=== PATIENT | female | born 2000 | race African-American/Black ===

== ENCOUNTER 2020-10-04 01:38 | Emergency (ER) | payer SELFPAY ==
--- NOTE | ~2020-10-04 | XR_ITS ---
EXAMINATION: XR shoulder RT min 2V INDICATION: Right shoulder pain TECHNIQUE: Four views of the right shoulder are submitted. COMPARISON: None FINDINGS: Normal alignment. No fracture. Glenohumeral and acromioclavicular joint spaces are normal. Soft tissues are unremarkable. IMPRESSION: 1. No acute osseous abnormality. Reviewed, dictated and finalized at location A.
[2020-10-04 01:42] VITALS: BP 141/84; PULSE 89; RESP 18; TEMP 35.7; O2SAT 100
--- NOTE | 2020-10-04 01:53 | ED.UPPEXIN ---
HPI - Extremity Injury (Upper) General Chief Complaint: Extremity Injury, Upper Stated Complaint: dislocated rt shoulder - bowling Time Seen by Provider: 10/04/20 01:49 History of Present Illness HPI narrative: richard 19 yo female presents to the ED for a shoulder dislocation . She reports that she went bowling with family earlier in the evening and did not notice anything out of the ordinary. When she got home she was having mild pain in the right shoulder, but was able to tolerate it. She awoke just prior to coming in and says that she has severe pain all around the shoulder radiating into the neck. She reports not being able to move the shoulder at all, so she believes that it popped out. No previous shoulder injuries. She did not take anything for her pain. Related Data Allergies Allergy/AdvReac Type Severity Reaction Status Date / Time penicillin V Allergy Difficulty Verified 10/04/20 01:44 Breathing Review of Systems Review of Systems: All systems reviewed & are unremarkable except as noted in HPI and below Constitutional: Constitutional: Reports no additional constitutional complaints Cardiovascular: Cardiovascular: Denies chest pain Respiratory: Respiratory: Denies dyspnea Gastrointestinal: Gastrointestinal: Reports no additional gastrointestinal complaints Musculoskeletal: Musculoskeletal: Denies back pain Neurologic: Denies dizziness PMFSH Social History Social History Gender identity (if verbalized by the patient): Female Sexual Orientation (if Verbalized by the Patient): Straight or Heterosexual Exam Const: General: healthy appearing, no acute distress and alert Orientation/consciousness: patient oriented x3 HENMT: Head: normal to inspection Resp: Effort & Inspection: normal respiratory effort Auscultation: clear to auscultation bilaterally Cardio: Rate: regular rate Rhythm: regular rhythm Other: 2 + right radial. brisk capillary refill Skin: General skin exam: normal color Rashes: no rashes Wounds: no wounds Neuro: General: patient oriented x3, moves all extremities, no focal motor deficits and CN's II-XI intact bilaterally Speech: normal speech Extrem: Other: Diffuse tenderness around shoulder on the left. Worst over lateral humeral head. No deformity. Refusing to move the shoulder or allow any further joint exam Full ROM in elbow and hand without difficulty. Sensation intact in axillary distribution Course Vital Signs Vital signs: Vital Signs Temperature 35.7 C L 10/04/20 01:42 Pulse Rate 89 04/19/21 01:42 Respiratory Rate 18 10/04/20 01:42 Blood Pressure 141/84 H 10/04/20 01:42 Pulse Oximetry 100 10/04/20 01:42 Temperature 35.7 C L 10/04/20 01:42 Pulse Rate 89 10/04/20 01:42 Respiratory Rate 18 10/04/20 01:42 Blood Pressure 141/84 H 10/04/20 01:42 Pulse Oximetry 100 10/04/20 01:42 MDM - Extremity Injury (Upper) MDM Narrative Medical decision making narrative: x-ray negative. history fits with strain or overuse type injury. Imaging Data Radiologist's impression: ITS Impressions Shoulder X-Ray 10/04/20 08:19 IMPRESSION: 1. No acute osseous abnormality. Discharge Plan Discharge Clinical Impression: Rotator cuff (capsule) sprain Qualifiers: Encounter type: initial encounter Laterality: right Qualified Code(s): S43.421A - Sprain of right rotator cuff capsule, initial encounter Patient Disposition: Home, Self-Care Condition: Stable Instructions: Rotator Cuff Injury (ED), Rotator Cuff Injury Exercises (DC) Prescriptions: New ibuprofen 800 mg tablet 800 mg PO Q8H Qty: 90 RF: 0 cyclobenzaprine 10 mg tablet 10 mg PO TID PRN (Reason: muscle spasm) Qty: 20 RF: 0 Follow-up/Referrals: PHYSICIAN NOT ON STAFF,NONSTAFF [Non-Staff] - Markie Hollins MD [Physician] -
--- NOTE | 2020-10-04 01:59 | PC.NURSE ---
Patient taken to xray.
[2020-10-04] MEDS: DEXAMETHASONE SOD PHOS INJ 4 MG/ML VIAL 10 MG IM (02:07)
[2020-10-04] MEDS: KETOROLAC (*BKC) 60 MG/2 ML VIAL IM (02:07)
== END 2020-10-04 02:32 | disposition home or self-care (01) ==
LOC: ANHED 02:22
PROVIDERS: Emergency Provider Emergency Medicine
DX: S43.421A Sprain of right rotator cuff capsule, initial encounter (principal); Y93.54 Activity, bowling; X50.9XXA Other and unspecified overexertion or strenuous movements or postures, initial encounter
CPT/HCPCS: 73030; 96372; 99284; A4565; J1100; J1885

== ENCOUNTER 2020-12-05 17:00 | Emergency (ER) | payer SELFPAY ==
--- NOTE | ~2020-12-05 | XR_ITS ---
XR finger 1st RT min 2V DATE: 12/05/2020 17:25 INDICATION: Injury, generalized right first digit pain TECHNIQUE: 4 views COMPARISON: None FINDINGS: No fracture or dislocation, periosteal reaction or bone destruction. IMPRESSION: Negative Reviewed, dictated and finalized at location A. IMPRESSION: Negative
[2020-12-05 17:09] VITALS: BP 143/76; PULSE 78; RESP 17; TEMP 36.6; O2SAT 99
--- NOTE | 2020-12-05 17:53 | ED.UPPEXIN ---
HPI - Extremity Injury (Upper) General Chief Complaint: Extremity Injury, Upper Stated Complaint: right thumb pain Time Seen by Provider: 12/05/20 17:20 Source: patient Mode of arrival: ambulatory Limitations: no limitations History of Present Illness HPI narrative: This is a 20 year old female that presents to the ER for right thumb pain after an injury today. Reports she was playing around with a friend and accidentally hurt the thumb. Reports decreased ROM due to pain. Denies numbness. Related Data Allergies Allergy/AdvReac Type Severity Reaction Status Date / Time penicillin V Allergy Difficulty Verified 12/05/20 17:23 Breathing Review of Systems Review of Systems: Narrative: CONSTITUTIONAL: Denies fever MUSCULOSKELETAL: Reports joint pain, and myalgia. NEUROLOGIC: Denies numbness All systems reviewed & are unremarkable except as noted in HPI and below PMFSH Past Medical History Medical History (Updated 12/05/20 @ 18:55 by Moni Casey PA-C) No active medical problems Surgical History Surgical History (Updated 12/05/20 @ 17:59 by Moni Casey PA-C) History of tonsillectomy Social History Social History Gender identity (if verbalized by the patient): Female Exam Narrative: Exam Narrative: GENERAL: Well-appearing, well-nourished, and in no acute distress. HEAD: Normocephalic, atraumatic. EYES: EOMI. EXTREMITIES: Decreased active ROM in the right first finger due to pain. No edema or obvious deformity. Normal radial pulses. Normal sensation SKIN: Warm, dry, no rash. NEURO: No focal deficits. Alert and oriented x3. PSYCH: Normal mood and affect Course Vital Signs Vital signs: Vital Signs Temperature 97.8 F 12/05/20 17:09 Pulse Rate 78 12/05/20 17:09 Respiratory Rate 17 12/05/20 17:09 Blood Pressure 143/76 H 12/05/20 17:09 Pulse Oximetry 99 12/05/20 17:09 Temperature 97.8 F 12/05/20 17:09 Pulse Rate 78 12/05/20 17:09 Respiratory Rate 17 12/05/20 17:09 Blood Pressure 143/76 H 12/05/20 17:09 Pulse Oximetry 99 12/05/20 17:09 Procedures Orthopedic Splinting/Casting Injury #1: Splinting/Casting Date: 12/05/20 Splinting/Casting Time: 18:56 Side: right Upper Extremity Injury Location: finger Upper Extremity Immobilizer: finger (other) Splint: prefabricated Pre-Formed: metal foam finger splint Pre-Procedure Neuro Vascular Exam: normal Post-Procedure Neuro Vascular Exam: normal MDM - Extremity Injury (Upper) MDM Narrative Medical decision making narrative: Patient presents to the ER for right 1st finger injury sustained just prior to arrival. Right first finger x-ray is without acute abnormalities. Patient placed in finger splint for comfort. Is to follow up with primary care doctor. Was given warnings to return to the ER Imaging Data Radiologist's impression: ITS Impressions Finger X-Ray 12/05/20 17:56 IMPRESSION: Negative Critical Care Time Critical Care Time Critical Care Time: No Discharge Plan Discharge Clinical Impression: Sprain of hand, thumb, right Qualifiers: Encounter type: initial encounter Sprain of finger site: metacarpophalangeal joint Qualified Code(s): S63.641A - Sprain of metacarpophalangeal joint of right thumb, initial encounter Patient Disposition: Home, Self-Care Condition: Stable Instructions: Finger Sprain (ED) Additional Instructions: Return to the ER if you experience fever, redness and swelling of your hand, numbness or any other symptoms that are concerning to you Rest. Ice to the area. Tylenol or Ibuprofen as needed for pain Follow up with primary care doctor for further management Prescriptions: No Action ibuprofen 800 mg tablet 800 mg PO Q8H Qty: 90 RF: 0 cyclobenzaprine 10 mg tablet 10 mg PO TID PRN (Reason: muscle spasm) Qty: 20 RF: 0 Follow-up/Refer
[2020-12-05] MEDS: HYDROcodone/acetaminophen (*CRX) 5-325 MG TABLET 1 TAB PO (17:58)
[2020-12-05 19:14] VITALS: BP 140/72; PULSE 100; RESP 18; O2SAT 72
== END 2020-12-05 19:10 | disposition home or self-care (01) ==
PROVIDERS: Emergency Provider Emergency Medicine
DX: S63.641A Sprain of metacarpophalangeal joint of right thumb, initial encounter (principal); X58.XXXA Exposure to other specified factors, initial encounter
CPT/HCPCS: 29130; 73140; 99283; A9270

== ENCOUNTER 2022-09-21 04:30 | Emergency (ER) | payer BC, SELFPAY ==
[2022-09-21 04:33] VITALS: BP 147/61; PULSE 88; RESP 20; TEMP 36.8; O2SAT 99
[2022-09-21 06:56] VITALS: BP 140/86; PULSE 95; RESP 18; TEMP 36.9; O2SAT 100
[2022-09-21 07:00] VITALS: BP 140/86; PULSE 80; RESP 18; TEMP 36.9; O2SAT 100
[2022-09-21 07:38] LABS: Basophils Percent Auto 0.4 % (0.2-1.2); Eosinophils Absolute Auto 0.1 K/mm3 (0-0.3); Eosinophils Percent Auto 1.3 % (0-4.4); Hematocrit 33.1 % (37.0-47.0); Immature Granulocyte Absolute 0.04 K/mm3 (0.00-0.031); Immature Granulocyte Percent A 0.6 % (0-0.5); Lymphocytes Absolute Auto 1.76 K/mm3 (0.9-3.2); Lymphocytes Percent Auto 24.6 % (18.3-44.2); Mean Corpuscular HGB Conc 33.2 g/dl (32-36); Mean Corpuscular Hemoglobin 26.2 pg (26-34); Mean Corpuscular Volume 78.8 fl (80-100); Monocytes Absolute Auto 0.8 K/mm3 (0.1-0.6); Monocytes Percent Auto 10.9 % (2.6-8.5); Neutrophils Absolute Auto 4.5 K/mm3 (1.3-6.7); Neutrophils Percent Auto 62.2 % (45.5-73.1); Platelet Count Result 210 k/mm3 (150-375); Red Cell Distribution Width 15.3 % (11.5-14.5); White Blood Count 7.2 K/mm3 (4.5-10.0)
[2022-09-21 07:52] LABS: Alanine Aminotransferase 20 U/L (6-35); Alkaline Phosphatase 103 U/L (38-126); Anion Gap 8 mmol/L (8-16); Aspartate Amino Transferase 26 U/L (14-36); Bilirubin,Total 0.6 mg/dL (0.2-1.3); Carbon Dioxide 24 mmol/L (22-30); Chloride 104 mmol/L (98-107); Estimated CRCL calculation 281 ml/min; Estimated Glomerular Filt Rate > 60; Glucose 87 mg/dL (65-110); Potassium 3.4 mmol/L (3.4-5.0); Sodium 136 mmol/L (137-145)
[2022-09-21 07:53] LABS: Blood Urea Nitrogen < 2 mg/dL (7-17)
--- NOTE | 2022-09-21 07:57 | ED.GENADULT ---
HPI - General Adult General Chief complaint: Upper Respiratory Infection Stated complaint: covid positive, Time Seen by Provider: 09/21/22 06:55 History of Present Illness HPI narrative: 21-year-old female that is approximately 18 weeks presented the emergency department for evaluation of increased shortness of breath. Patient states that she was having similar symptoms yesterday presented to an urgent care and was diagnosed with COVID and a urinary tract infection. Patient states that her shortness of breath is due to worsening asthma and due to some nasal congestion. Patient denies any current chest pain. While patient was prescribed an antibiotic for UTI she has not yet started this yet. Patient presented again to our ED for complaint of shortness of breath. Patient states that she asked her physician yesterday for albuterol inhaler but he felt this was not necessary. Related Data Allergies Allergy/AdvReac Type Severity Reaction Status Date / Time penicillin V Allergy Difficulty Verified 09/21/22 07:46 Breathing Review of Systems Review of Systems: All systems reviewed & are unremarkable except as noted in HPI and below PMFSH Past Medical History Medical History (Updated 09/21/22 @ 18:43 by Isaias Smith MD) No active medical problems Surgical History Surgical History (Updated 12/05/20 @ 17:59 by Moni Casey PA-C) History of tonsillectomy Social History Social History Gender identity (if verbalized by the patient): Female Sexual Orientation (if Verbalized by the Patient): Straight or Heterosexual Exam Narrative: APPEARANCE: Well appearing, no pain, no distress, well-nourished. HEAD: normocephalic, atraumatic. EYES: PERRLA/EOMI, conjunctivae clear. NOSE: Normal no drainage NECK: Supple. No adenopathy, no masses. RESPIRATORY: Airway patent, respirations nonlabored. Clear to auscultation bilaterally, no rales, rhonchi, wheezing. CARDIOVASCULAR: Regular rate and rhythm without murmurs rubs or gallops. ABDOMINAL: Soft, nontender, nondistended, normal bowel sounds MUSCULOSKELETAL: Moves all extremities. Strength/ROM intact, No edema, No calf tenderness. NEURO: Alert. Cranial nerves II through XII intact. SKIN: Warm, dry. Normal Color Course Course Emergency Course: 21-year-old female with COVID and persistent shortness of breath. Patient's lung exam was clear but patient will be treated with an albuterol inhaler for symptom control. Patient was updated on the treatment plan. All question concerns were addressed. Patient denies any uterine contractions. Patient is not tachycardic nor hypoxic. Lungs are clear to auscultation Patient does feel improved with treatment. Patient was updated the results of the work-up. Patient's symptoms are consistent with her current COVID infection. Low concern for pulmonary embolism at this time. Patient's UA was significant for urinary tract infection but patient was started on antibiotics yesterday. Urine culture was repeated. All question concerns were addressed and patient was comfortable with the plan for discharge and close follow-up. Vital Signs Vital signs: Vital Signs Temperature 98.2 F 09/21/22 04:33 Pulse Rate 88 09/21/22 04:33 Respiratory Rate 20 09/21/22 04:33 Blood Pressure 147/61 H 09/21/22 04:33 Pulse Oximetry 99 09/21/22 04:33 Oxygen Delivery Room Air 09/21/22 04:33 Temperature 98.4 F 09/21/22 07:00 Pulse Rate 89 09/21/22 10:05 Respiratory Rate 18 09/21/22 10:05 Blood Pressure 122/61 09/21/22 10:05 Pulse Oximetry 100 09/21/22 10:05 Oxygen Delivery Room Air 09/21/22 07:00 Medical Decision Making Vital Signs Vital Signs: Vital Signs Temperature 98.2 F 09/21/22 04:33 Pulse Rate 88 09/21/22 04:33 Respiratory Rate 20 09/21/22 04:33 Blood Pressure 147/61 H 09/21/22 04:33 Pulse Oximetry 99 09/21/22 04:33 Oxy
[2022-09-21 08:01] LABS: Appearance Urine Cloudy (Clear); Bacteria Urine 1+ /hpf; Bilirubin Urine Negative (Negative); Blood Urine 1+ (Negative); Color Urine Dark Yellow (Yellow); Glucose Urine UA Negative (Negative); Ketones Urine Trace mg/dL (Negative); Leukocyte Esterase Ur 2+ LEU/UL (Negative); Nitrate Urine Negative (Negative); Non Pathogenic Casts 0-2; Protein Urine Negative (Negative); Specific Grav Ur 1.018 (1.001-1.035); Squamous Epithelial Cell Urine Moderate /hpf (Few)
[2022-09-21 08:09] LABS: Add Urine Microscopic? YES
[2022-09-21] MEDS: SODIUM CHLORIDE 0.9% IV 1,000 ML 999 ML IV CONT (08:13)
[2022-09-21 08:45] VITALS: PULSE 75; RESP 22
[2022-09-21] MEDS: ALBUTEROL SULFATE NEB 2.5 MG/3 ML INH INHALATION (08:45)
[2022-09-21 08:54] VITALS: PULSE 74; RESP 20
[2022-09-21 10:05] VITALS: BP 122/61; PULSE 89; RESP 18; O2SAT 100
== END 2022-09-21 10:11 | disposition home or self-care (01) ==
PROVIDERS: Emergency Provider Emergency Medicine; PCP Internal Medicine
DX: O98.512 Other viral diseases complicating pregnancy, second trimester (principal); U07.1 COVID-19; O23.42 Unspecified infection of urinary tract in pregnancy, second trimester; N39.0 Urinary tract infection, site not specified; O99.512 Diseases of the respiratory system complicating pregnancy, second trimester; J45.909 Unspecified asthma, uncomplicated; Z3A.18 18 weeks gestation of pregnancy
CPT/HCPCS: 36415; 80053; 81001; 85025; 87086; 87088; 94640; 96360; 96361; 99283; J7030